=== PATIENT | female | born 1970 | race Caucasian/White ===

== ENCOUNTER 2016-11-02 09:00 | Outpatient (RCR) | payer BC ==
[~2016-11-02 09:00] MED LIST: AMOXICILLIN 8751 TAB PO; FIORICET 325 MG1 TAB; PRENATAL1 TAB PO; TYLENOL 325MG325 MG PO
== END 2017-01-12 | disposition home or self-care (01) ==
LOC: WSPT
DX: M79.605 Pain in left leg (principal)

== ENCOUNTER 2017-02-16 08:45 | Outpatient (RCR) | payer BC | END 2017-04-17 | disposition home or self-care (01) | LOC: WSPT | DX: M79.605 Pain in left leg (principal) ==

== ENCOUNTER 2017-08-08 08:45 | Outpatient (RCR) | payer BC | END 2017-08-15 09:53 | LOC: WSPT 08:45 | DX: M79.605 Pain in left leg (principal) ==

== ENCOUNTER 2018-03-21 11:00 | Outpatient (RCR) | payer BC | END 2018-04-09 | disposition home or self-care (01) | LOC: WSPT | DX: M54.42 Lumbago with sciatica, left side (principal); G89.29 Other chronic pain; M25.512 Pain in left shoulder; M25.561 Pain in right knee; Z79.899 Other long term (current) drug therapy ==

== ENCOUNTER 2018-09-11 13:15 | Outpatient (RCR) | payer BC | END 2018-09-24 10:00 | disposition home or self-care (01) | LOC: WSPT 13:15 | DX: M54.42 Lumbago with sciatica, left side (principal); G89.29 Other chronic pain; M25.561 Pain in right knee; M25.512 Pain in left shoulder ==

== ENCOUNTER → 2018-10-07 | Outpatient (CLI) | payer BC | LOC: MC.RAD 08-26 11:20 | DX: Z12.31 Encounter for screening mammogram for malignant neoplasm of breast (principal) ==